=== PATIENT | male | born 1965 | race Caucasian/White ===

== ENCOUNTER → 2020-04-15 | Emergency (ER) | payer MEDICAID ==
[~2020-04-15] VITALS: Ht 175.3 cm; Wt 90.7 kg
[~2020-04-15] MED LIST: ASPI81CH43 PO; ATOR40TA52 PO; CLOP75TA41 PO; LOSA100T33 PO; METO-158 PO; methylPREDNISolone SOD SUCC 125 MG/2 ML VL IM ONE
[2020-04-15 20:20] VITALS: BP 164/104
== END | disposition home or self-care (01) ==
LOC: ER 20:10
DX: M10.9 Gout, unspecified (principal); E78.5 Hyperlipidemia, unspecified; I10 Essential (primary) hypertension; I25.2 Old myocardial infarction; Z87.891 Personal history of nicotine dependence; Z98.61 Coronary angioplasty status
CPT/HCPCS: 96372; 99283; J2930

== ENCOUNTER 2020-05-03 16:56 | Emergency (ER) | payer MEDICAID ==
[~2020-05-03] VITALS: Ht 175.3 cm; Wt 86.2 kg
[~2020-05-03 16:56] MED LIST changes: -methylPREDNISolone SOD SUCC 125 MG/2 ML VL IM ONE
[2020-05-03 17:37] VITALS: BP 156/98
[2020-05-03] MEDS ORDERED: methylPREDNISolone SOD SUCC 125 MG/2 ML VL IM ONE (17:45)
[2020-05-03] MEDS ORDERED: KETOROLAC TROMETH 60MG/2ML VIAL IM ONE (17:45)
== END 2020-05-03 18:22 | disposition home or self-care (01) ==
LOC: ER 16:56
DX: M10.9 Gout, unspecified (principal); E78.5 Hyperlipidemia, unspecified; I10 Essential (primary) hypertension
CPT/HCPCS: 73562; 96372; 99284; J1885; J2930

== ENCOUNTER 2020-06-19 01:07 | Emergency (ER) | payer MEDICAID ==
[~2020-06-19] VITALS: Ht 177.8 cm; Wt 88.5 kg
[2020-06-19] MEDS ORDERED: cloNIDine HCL 0.1 MG TAB ONE (01:21)
[2020-06-19] MEDS ORDERED: cloNIDine HCL 0.1 MG TAB PO ONE (01:30)
[2020-06-19 03:07] VITALS: BP 153/92
[2020-06-19] MEDS ORDERED: TETRACAINE HCL 0.5% OPTH(EYE) SOLN 4ML RIGHTEYE ONE (05:00)
[2020-06-19] MEDS ORDERED: FLUORESCEIN SOD 1 MG TEST STRIP RIGHTEYE ONE (05:00)
== END 2020-06-19 05:56 | disposition left against medical advice (07) ==
LOC: ER 01:07
DX: H57.11 Ocular pain, right eye (principal); Z53.21 Procedure and treatment not carried out due to patient leaving prior to being seen by health care provider

== ENCOUNTER 2020-07-12 23:52 | Emergency (ER) | payer MEDICAID ==
[~2020-07-12] VITALS: Ht 177.8 cm; Wt 90.7 kg
[2020-07-13 02:50] LABS: Basophils # (auto) 0.1 10 ^3/uL (0-0.2); Basophils % (auto) 0.8 % (0.0-2.0); Eosinophils # (auto) 0.2 10 ^3/uL (0-0.8); Eosinophils % (auto) 2.7 % (0.0-7.0); Hematocrit 37.1 % (41.0-53.0); Hemoglobin 12.4 g/dL (13.5-17.5); Lymphocytes # (auto) 1.2 10 ^3/uL (0.4-5.4); Lymphocytes % (auto) 16.8 % (10.0-50.0); Mean Corpuscular Hemoglobin 31.3 pg (28.0-32.0); Mean Corpuscular Hgb Conc. 33.5 g/dL (32.0-36.0); Mean Corpuscular Volume 93.4 fL (80.0-100.0); Monocytes # (auto) 0.4 10 ^3/uL (0-1.3); Monocytes % (auto) 5.4 % (0.0-12.0); Neutrophils # (auto) 5.3 10 ^3/uL (1.6-8.6); Neutrophils % (auto) 74.3 % (37.0-80.0); Nucleated Red Blood Cells % 0.4 %; Platelet Count (auto) 341 10^3/uL (140-450); Red Blood Cells 3.97 10^6/uL (4.5-5.90); Red Cell Distribution Width 17.5 % (11.8-14.3); White Blood Cell 7.1 10^3/uL (4.4-10.8)
[2020-07-13 03:07] LABS: Albumin 3.5 g/dL (3.4-5.0); Anion Gap 6 (5-15); Blood Urea Nitrogen 17 mg/dL (7-18); Calcium 8.7 mg/dL (8.5-10.1); Carbon Dioxide 26 mmol/L (21-32); Chloride 106 mmol/L (98-107); Glucose 113 mg/dL (74-106); Lipase 103 U/L (73-393); Magnesium 2.1 mg/dL (1.6-2.6); Sodium 138 mmol/L (136-145)
[2020-07-13 03:09] LABS: Alanine Aminotransferase 28 U/L (16-61); Amylase 70 U/L (25-115); Aspartate Aminotransferase 14 U/L (15-37); BUN/Creatinine Ratio 16.2; GFR African American 94 mL/min; GFR Non-African American 77 mL/min
[2020-07-13] MEDS ORDERED: KETOROLAC TROMETH 60MG/2ML VIAL IM ONE (03:15)
[2020-07-13 03:16] LABS: Alkaline Phosphatase 103 U/L (45-117); Bilirubin, Total 0.4 mg/dL (0.2-1.0); Total Protein 6.9 g/dL (6.4-8.2)
[2020-07-13 04:03] VITALS: BP 167/94
== END 2020-07-13 03:11 | disposition home or self-care (01) ==
LOC: ER 23:52
DX: M54.5 Low back pain (principal); M19.90 Unspecified osteoarthritis, unspecified site; I25.10 Atherosclerotic heart disease of native coronary artery without angina pectoris; M10.9 Gout, unspecified; E78.5 Hyperlipidemia, unspecified; I10 Essential (primary) hypertension; F17.210 Nicotine dependence, cigarettes, uncomplicated
CPT/HCPCS: 36415; 74176; 80053; 82150; 83690; 83735; 84484; 85025; 93005; 96372; 99285; J1885

== ENCOUNTER 2021-03-28 22:18 | Inpatient (IN) | payer MEDICAID ==
[~2021-03-28] VITALS: Ht 177.8 cm; Wt 96.1 kg
[~2021-03-28 22:18] MED LIST changes: -CLOP75TA41 PO; +CLOP75TA70 PO
[2021-03-28 23:05] LABS: Basophils # (auto) 0.1 10 ^3/uL (0-0.2); Basophils % (auto) 0.7 % (0.0-2.0); Eosinophils # (auto) 0.1 10 ^3/uL (0-0.8); Eosinophils % (auto) 1.1 % (0.0-7.0); Hemoglobin 14.3 g/dL (13.5-17.5); Lymphocytes # (auto) 1.5 10 ^3/uL (0.4-5.4); Lymphocytes % (auto) 14.4 % (10.0-50.0); Mean Corpuscular Hemoglobin 31.2 pg (28.0-32.0); Mean Corpuscular Hgb Conc. 33.2 g/dL (32.0-36.0); Mean Corpuscular Volume 93.9 fL (80.0-100.0); Monocytes # (auto) 0.8 10 ^3/uL (0-1.3); Monocytes % (auto) 7.5 % (0.0-12.0); Neutrophils # (auto) 7.9 10 ^3/uL (1.6-8.6); Neutrophils % (auto) 76.3 % (37.0-80.0); Nucleated Red Blood Cells % 0.2 %; Red Blood Cells 4.58 10^6/uL (4.5-5.90); Red Cell Distribution Width 17.4 % (11.8-14.3); White Blood Cell 10.4 10^3/uL (4.4-10.8)
[2021-03-28 23:21] LABS: Albumin 3.6 g/dL (3.4-5.0); Anion Gap 8 (5-15); Blood Urea Nitrogen 19 mg/dL (7-18); Carbon Dioxide 26 mmol/L (21-32); Chloride 106 mmol/L (98-107); Glucose 155 mg/dL (74-106); Potassium 4.2 mmol/L (3.5-5.1); Sodium 140 mmol/L (136-145)
[2021-03-28 23:22] LABS: INR 0.97 (0.9-1.15); Partial Thromboplastin Time 29.8 sec (23.0-31.2)
[2021-03-28 23:27] LABS: Alanine Aminotransferase 32 U/L (16-61); Alkaline Phosphatase 105 U/L (45-117); Aspartate Aminotransferase 16 U/L (15-37); BUN/Creatinine Ratio 17.1; Bilirubin, Total 0.4 mg/dL (0.2-1.0); GFR African American 88 mL/min; GFR Non-African American 73 mL/min; Total Protein 7.5 g/dL (6.4-8.2); Uric Acid 8.1 mg/dL (3.5-7.2)
[2021-03-28] MEDS ORDERED: MORPHINE SULFATE 10 MG/ML INJ 1ML SDV IM ONE (23:45)
[2021-03-28] MEDS ORDERED: HYDROcodone-ACET 10/325MG TAB PO ONE (23:45)
[2021-03-28] MEDS ORDERED: COLCHICINE 0.6 MG CAP PO ONE (23:45)
[2021-03-29] MEDS ORDERED: MORPHINE SULFATE 4 MG/ML SYR/VIAL ONE (00:29)
[2021-03-29] MEDS ORDERED: MORPHINE SULFATE INJECTION 2 MG/ML SYRG ONE (00:29)
[2021-03-29 03:42] LABS: Urine Bacteria NONE SEEN /hpf (None Seen); Urine Blood Negative /uL (Negative); Urine Hyaline Cast FEW /lpf (0 - 2); Urine Mucus FEW (None Seen); Urine Specific Gravity 1.028 (1.001-1.035); Urine WBC 6 /hpf (0 - 3)
[2021-03-29] MEDS ORDERED: TEMAZEPAM 15 MG CAP PO PRN (05:00)
[2021-03-29] MEDS ORDERED: NITROGLYCERIN 0.4 MG SL TAB SL PRN (05:00)
[2021-03-29] MEDS ORDERED: ONDANSETRON HCL 4 MG/2 ML VIAL IV PRN (05:00)
[2021-03-29] MEDS ORDERED: MORPHINE SULFATE INJECTION 2 MG/ML SYRG IV PRN (05:00)
[2021-03-29] MEDS ORDERED: ACETAMINOPHEN 325 MG TAB PO PRN (05:00)
[2021-03-29] MEDS ORDERED: HYDROcodone-ACET 5/325MG TAB PO PRN (05:00)
[2021-03-29] MEDS: COLCHICINE 0.6 MG CAP PO SCH (09:25)
[2021-03-29] MEDS: ASPirin 81 mg TAB PO SCH (09:25)
[2021-03-29] MEDS: METOPROLOL TARTRATE 50 MG TAB PO SCH ×2 (09:25→21:43)
[2021-03-29] MEDS: ENOXAPARIN SOD 40 MG/0.4 ML SYRINGE SC SCH (09:26)
[2021-03-29] MEDS: FAMOTIDINE 20 MG TAB PO SCH ×2 (09:26→21:42)
[2021-03-29] MEDS: CLOPIDOGREL BISULFATE 75 MG TAB PO SCH (09:26)
[2021-03-29 12:30] VITALS: BP 158/93
[2021-03-29] MEDS ORDERED: HCTZ 25 MG TAB PO ONE (15:30)
[2021-03-29] MEDS ORDERED: INDOMETHACIN 25 MG CAP PO ONE (15:30)
[2021-03-29 17:00] VITALS: BP 153/77
[2021-03-29] MEDS: INDOMETHACIN 25 MG CAP PO SCH (21:42)
[2021-03-29 22:00] VITALS: BP 139/77
[2021-03-30 04:48] VITALS: BP 158/88
[2021-03-30] MEDS: INDOMETHACIN 25 MG CAP PO SCH ×3 (05:44→22:18)
[2021-03-30 06:04] LABS: Basophils # (auto) 0.1 10 ^3/uL (0-0.2); Basophils % (auto) 0.8 % (0.0-2.0); Eosinophils # (auto) 0.1 10 ^3/uL (0-0.8); Eosinophils % (auto) 1.7 % (0.0-7.0); Hematocrit 38.5 % (41.0-53.0); Lymphocytes # (auto) 1.4 10 ^3/uL (0.4-5.4); Lymphocytes % (auto) 19.2 % (10.0-50.0); Mean Corpuscular Hemoglobin 31.3 pg (28.0-32.0); Mean Corpuscular Hgb Conc. 33.7 g/dL (32.0-36.0); Monocytes # (auto) 0.5 10 ^3/uL (0-1.3); Monocytes % (auto) 7.5 % (0.0-12.0); Neutrophils % (auto) 70.8 % (37.0-80.0); Nucleated Red Blood Cells % 0.1 %; Red Blood Cells 4.14 10^6/uL (4.5-5.90); Red Cell Distribution Width 16.9 % (11.8-14.3); White Blood Cell 7.1 10^3/uL (4.4-10.8)
[2021-03-30 06:27] LABS: Chloride 104 mmol/L (98-107); Sodium 137 mmol/L (136-145)
[2021-03-30 06:37] LABS: Anion Gap 7 (5-15); BUN/Creatinine Ratio 21.8; Blood Urea Nitrogen 22 mg/dL (7-18); Calcium 8.8 mg/dL (8.5-10.1); Carbon Dioxide 26 mmol/L (21-32); GFR African American 98 mL/min; GFR Non-African American 81 mL/min; Glucose 132 mg/dL (74-106); Uric Acid 9.5 mg/dL (3.5-7.2)
[2021-03-30 08:33] VITALS: BP 145/90
[2021-03-30] MEDS ORDERED: ADENOSINE 81 MG in GIVE UN-DILUTED 0 ML IV STA (08:45)
[2021-03-30] MEDS: ASPirin 81 mg TAB PO SCH (09:52)
[2021-03-30] MEDS: ENOXAPARIN SOD 40 MG/0.4 ML SYRINGE SC SCH (09:52)
[2021-03-30] MEDS: FAMOTIDINE 20 MG TAB PO SCH ×2 (09:52→22:17)
[2021-03-30] MEDS: METOPROLOL TARTRATE 50 MG TAB PO SCH ×2 (09:54→22:17)
[2021-03-30] MEDS: HCTZ 25 MG TAB PO SCH (09:55)
[2021-03-30] MEDS: LOSARTAN POTASSIUM 25 MG TAB PO SCH (09:56)
[2021-03-30] MEDS: COLCHICINE 0.6 MG CAP PO SCH (10:00)
[2021-03-30] MEDS: CLOPIDOGREL BISULFATE 75 MG TAB PO SCH (10:00)
[2021-03-30] MEDS ORDERED: cloNIDine HCL 0.1 MG TAB PO PRN (10:15)
[2021-03-30 12:47] VITALS: BP 163/83
[2021-03-30 17:00] VITALS: BP 128/78
[2021-03-30 22:00] VITALS: BP 126/85
[2021-03-31 05:00] VITALS: BP_SYST 138; BP_SYST 158; BP_DIAS 82; BP_DIAS 91
[2021-03-31] MEDS: INDOMETHACIN 25 MG CAP PO SCH ×3 (05:22→22:12)
[2021-03-31 06:16] LABS: Basophils # (auto) 0 10 ^3/uL (0-0.2); Basophils % (auto) 0.6 % (0.0-2.0); Eosinophils # (auto) 0.1 10 ^3/uL (0-0.8); Eosinophils % (auto) 1.8 % (0.0-7.0); Hematocrit 39.2 % (41.0-53.0); Hemoglobin 13.3 g/dL (13.5-17.5); Lymphocytes # (auto) 1.4 10 ^3/uL (0.4-5.4); Lymphocytes % (auto) 23.6 % (10.0-50.0); Mean Corpuscular Hemoglobin 31.4 pg (28.0-32.0); Mean Corpuscular Hgb Conc. 33.9 g/dL (32.0-36.0); Mean Corpuscular Volume 92.7 fL (80.0-100.0); Monocytes # (auto) 0.4 10 ^3/uL (0-1.3); Monocytes % (auto) 6.9 % (0.0-12.0); Neutrophils # (auto) 4.1 10 ^3/uL (1.6-8.6); Neutrophils % (auto) 67.1 % (37.0-80.0); Nucleated Red Blood Cells % 0.2 %; Red Blood Cells 4.23 10^6/uL (4.5-5.90); Red Cell Distribution Width 16.5 % (11.8-14.3); White Blood Cell 6.1 10^3/uL (4.4-10.8)
[2021-03-31 07:03] LABS: BUN/Creatinine Ratio 26.3; Calcium 8.6 mg/dL (8.5-10.1); Uric Acid 9.7 mg/dL (3.5-7.2)
[2021-03-31 08:47] VITALS: BP 151/96
[2021-03-31] MEDS: ASPirin 81 mg TAB PO SCH (09:04)
[2021-03-31] MEDS: METOPROLOL TARTRATE 50 MG TAB PO SCH ×2 (09:05→22:12)
[2021-03-31] MEDS: COLCHICINE 0.6 MG CAP PO SCH (09:05)
[2021-03-31] MEDS: HCTZ 25 MG TAB PO SCH (09:05)
[2021-03-31] MEDS: FAMOTIDINE 20 MG TAB PO SCH ×2 (09:06→22:12)
[2021-03-31] MEDS: CLOPIDOGREL BISULFATE 75 MG TAB PO SCH (09:06)
[2021-03-31] MEDS: LOSARTAN POTASSIUM 25 MG TAB PO SCH (09:07)
[2021-03-31] MEDS: ENOXAPARIN SOD 40 MG/0.4 ML SYRINGE SC SCH (09:12)
[2021-03-31 11:27] VITALS: BP 150/93
[2021-03-31 17:20] VITALS: BP 154/97
[2021-03-31 20:00] VITALS: BP 157/88
[2021-04-01 05:00] VITALS: BP 142/90
[2021-04-01] MEDS: INDOMETHACIN 25 MG CAP PO SCH (05:40)
[2021-04-01 09:00] VITALS: BP 151/89
[2021-04-01] MEDS: ASPirin 81 mg TAB PO SCH (09:08)
[2021-04-01] MEDS: COLCHICINE 0.6 MG CAP PO SCH (09:08)
[2021-04-01] MEDS: CLOPIDOGREL BISULFATE 75 MG TAB PO SCH (09:15)
[2021-04-01] MEDS: METOPROLOL TARTRATE 50 MG TAB PO SCH (09:15)
[2021-04-01] MEDS: HCTZ 25 MG TAB PO SCH (09:15)
[2021-04-01] MEDS: FAMOTIDINE 20 MG TAB PO SCH (09:16)
[2021-04-01] MEDS: ENOXAPARIN SOD 40 MG/0.4 ML SYRINGE SC SCH (09:16)
[2021-04-01] MEDS: LOSARTAN POTASSIUM 25 MG TAB PO SCH (09:17)
[2021-04-01 13:00] VITALS: BP 147/80
== END 2021-04-01 12:30 | disposition home or self-care (01) | DRG 194 ==
LOC: ER 22:29 → TELE 03-29 04:52 → TELE-WESTW 03-29 12:42
PROVIDERS: ADMIT Nurse Practitioner; ATTEND Family Medicine
DX: I11.0 Hypertensive heart disease with heart failure (principal); E86.9 Volume depletion, unspecified; D63.8 Anemia in other chronic diseases classified elsewhere; I50.43 Acute on chronic combined systolic (congestive) and diastolic (congestive) heart failure; Z20.822 Contact with and (suspected) exposure to COVID-19; I25.2 Old myocardial infarction; E78.5 Hyperlipidemia, unspecified; E78.00 Pure hypercholesterolemia, unspecified; Z82.49 Family history of ischemic heart disease and other diseases of the circulatory system; R73.03 Prediabetes; Z87.891 Personal history of nicotine dependence; Z95.5 Presence of coronary angioplasty implant and graft; M10.071 Idiopathic gout, right ankle and foot; Z79.899 Other long term (current) drug therapy; Z79.82 Long term (current) use of aspirin; I25.10 Atherosclerotic heart disease of native coronary artery without angina pectoris
CPT/HCPCS: 36415; 71045; 73600; 78452; 80048; 80053; 81001; 83036; 83880; 84443; 84484; 84550; 85025; 85610; 85730; 87426; 93005; 93017; 93306; 96372; G0378; J0153

== ENCOUNTER 2021-07-26 06:43 | Emergency (ER) | payer MEDICAID ==
[~2021-07-26] VITALS: Ht 177.8 cm; Wt 90.7 kg
[2021-07-26] MEDS ORDERED: KETOROLAC TROMETH 60MG/2ML VIAL IM ONE (08:00)
[2021-07-26 08:37] VITALS: BP 176/111
== END 2021-07-26 08:53 | disposition home or self-care (01) ==
LOC: ER 06:45
DX: M10.072 Idiopathic gout, left ankle and foot (principal); I25.10 Atherosclerotic heart disease of native coronary artery without angina pectoris; E78.5 Hyperlipidemia, unspecified; I10 Essential (primary) hypertension; I25.2 Old myocardial infarction; Z79.82 Long term (current) use of aspirin; Z79.899 Other long term (current) drug therapy; Z98.890 Other specified postprocedural states; Z87.891 Personal history of nicotine dependence
CPT/HCPCS: 96372; 99283; J1885

== ENCOUNTER 2021-09-26 10:48 | Emergency (ER) | payer MEDICAID, OTHER ==
[~2021-09-26] VITALS: Ht 177.8 cm; Wt 90.7 kg
[2021-09-26] MEDS ORDERED: IBUPROFEN 800 MG TAB PO ONE (11:30)
[2021-09-26 12:46] VITALS: BP 191/121
== END 2021-09-26 12:55 | disposition home or self-care (01) ==
LOC: ER 10:48
DX: S16.1XXA Strain of muscle, fascia and tendon at neck level, initial encounter (principal); S46.912A Strain of unspecified muscle, fascia and tendon at shoulder and upper arm level, left arm, initial encounter; V43.62XA Car passenger injured in collision with other type car in traffic accident, initial encounter; Y93.89 Activity, other specified; Y92.89 Other specified places as the place of occurrence of the external cause; Y99.8 Other external cause status
CPT/HCPCS: 72040; 73030

== ENCOUNTER 2022-01-19 12:39 | Inpatient (IN) | payer MEDICAID, OTHER ==
[~2022-01-19] VITALS: Ht 177.8 cm; Wt 88.6 kg
[2022-01-19] MEDS ORDERED: NITROGLYCERIN 0.4 MG SL TAB SL ONE (13:00)
[2022-01-19] MEDS ORDERED: ASPirin 81 mg TAB PO ONE (13:00)
[2022-01-19 13:22] LABS: Basophils # (auto) 0.1 10 ^3/uL (0-0.2); Basophils % (auto) 1.1 % (0.0-2.0); Eosinophils # (auto) 0.2 10 ^3/uL (0-0.8); Eosinophils % (auto) 1.8 % (0.0-7.0); Hematocrit 42.2 % (41.0-53.0); Lymphocytes # (auto) 1.1 10 ^3/uL (0.4-5.4); Lymphocytes % (auto) 12.2 % (10.0-50.0); Mean Corpuscular Hemoglobin 30.2 pg (28.0-32.0); Mean Corpuscular Hgb Conc. 33.3 g/dL (32.0-36.0); Mean Corpuscular Volume 90.8 fL (80.0-100.0); Monocytes # (auto) 0.4 10 ^3/uL (0-1.3); Monocytes % (auto) 4.3 % (0.0-12.0); Neutrophils # (auto) 7.2 10 ^3/uL (1.6-8.6); Neutrophils % (auto) 80.6 % (37.0-80.0); Nucleated Red Blood Cells % 0.7 %; Red Blood Cells 4.65 10^6/uL (4.5-5.90); Red Cell Distribution Width 17.6 % (11.8-14.3); White Blood Cell 8.9 10^3/uL (4.4-10.8)
[2022-01-19 13:43] LABS: Albumin 3.5 g/dL (3.4-5.0); Calcium 9.4 mg/dL (8.5-10.1); Magnesium 2.1 mg/dL (1.6-2.6)
[2022-01-19 13:55] LABS: Bilirubin, Total 0.4 mg/dL (0.2-1.0); Total Protein 7.5 g/dL (6.4-8.2)
[2022-01-19] MEDS ORDERED: ACETAMINOPHEN 325 MG TAB PO PRN (17:15)
[2022-01-19] MEDS ORDERED: ONDANSETRON HCL 4 MG/2 ML VIAL IV PRN (17:15)
[2022-01-19] MEDS ORDERED: MORPHINE SULFATE INJECTION 2 MG/ML SYRG IV PRN (17:15)
[2022-01-19] MEDS ORDERED: NITROGLYCERIN 0.4 MG SL TAB SL PRN (17:15)
[2022-01-19] MEDS ORDERED: TEMAZEPAM 15 MG CAP PO PRN (17:15)
[2022-01-19] MEDS: METOPROLOL TARTRATE 50 MG TAB PO SCH (21:33)
[2022-01-19 21:34] VITALS: BP 132/86
[2022-01-19] MEDS: ATORVASTATIN 20 MG TAB PO SCH (21:34)
[2022-01-20 03:23] VITALS: BP 150/86
[2022-01-20 05:25] LABS: Basophils # (auto) 0.1 10 ^3/uL (0-0.2); Basophils % (auto) 0.9 % (0.0-2.0); Eosinophils # (auto) 0.1 10 ^3/uL (0-0.8); Eosinophils % (auto) 1.8 % (0.0-7.0); Hematocrit 40.3 % (41.0-53.0); Hemoglobin 13.5 g/dL (13.5-17.5); Lymphocytes # (auto) 1.6 10 ^3/uL (0.4-5.4); Lymphocytes % (auto) 18.9 % (10.0-50.0); Mean Corpuscular Hemoglobin 30.3 pg (28.0-32.0); Mean Corpuscular Hgb Conc. 33.6 g/dL (32.0-36.0); Mean Corpuscular Volume 90.2 fL (80.0-100.0); Monocytes # (auto) 0.5 10 ^3/uL (0-1.3); Monocytes % (auto) 6.2 % (0.0-12.0); Neutrophils % (auto) 72.2 % (37.0-80.0); Nucleated Red Blood Cells % 0.2 %; Red Blood Cells 4.47 10^6/uL (4.5-5.90); Red Cell Distribution Width 18.1 % (11.8-14.3); White Blood Cell 8.2 10^3/uL (4.4-10.8)
[2022-01-20 05:39] LABS: Calcium 9.4 mg/dL (8.5-10.1); Potassium 4.4 mmol/L (3.5-5.1)
[2022-01-20 05:47] LABS: BUN/Creatinine Ratio 17.2
[2022-01-20 08:00] VITALS: BP 141/86
[2022-01-20 09:00] VITALS: BP 141/86
[2022-01-20] MEDS: LOSARTAN POTASSIUM 50 MG TAB PO SCH (09:29)
[2022-01-20] MEDS: ASPirin 81 mg TAB PO SCH (09:29)
[2022-01-20] MEDS: ENOXAPARIN SOD 40 MG/0.4 ML SYRINGE SC SCH (09:30)
[2022-01-20] MEDS: CLOPIDOGREL BISULFATE 75 MG TAB PO SCH (09:30)
[2022-01-20] MEDS: METOPROLOL TARTRATE 50 MG TAB PO SCH ×2 (09:30→21:06)
[2022-01-20] MEDS: PANTOPRAZOLE 40 MG TAB PO SCH (09:30)
[2022-01-20] MEDS ORDERED: IOHEXOL 350 MG/ML 100ML IJ ONE (11:03)
[2022-01-20 13:00] VITALS: BP 151/81
[2022-01-20] MEDS ORDERED: LOSA100T33 PO (16:58)
[2022-01-20] MEDS ORDERED: ASPI325T4 PO (16:58)
[2022-01-20] MEDS ORDERED: ALLO100T PO (16:58)
[2022-01-20] MEDS ORDERED: CYCL-837 PO (16:58)
[2022-01-20] MEDS ORDERED: MET50T PO (16:58)
[2022-01-20] MEDS ORDERED: ATO40T PO (16:58)
[2022-01-20 17:00] VITALS: BP 143/84
[2022-01-20] MEDS: ATORVASTATIN 20 MG TAB PO SCH (21:06)
[2022-01-20 22:27] VITALS: BP 138/86
[2022-01-21 05:34] VITALS: BP 161/99
[2022-01-21] MEDS ORDERED: ADENOSINE 74 MG in GIVE UN-DILUTED 0 ML IV STA (08:19)
[2022-01-21 09:00] VITALS: BP 161/108
[2022-01-21] MEDS: ASPirin 81 mg TAB PO SCH (09:50)
[2022-01-21] MEDS: LOSARTAN POTASSIUM 50 MG TAB PO SCH (09:50)
[2022-01-21] MEDS: CLOPIDOGREL BISULFATE 75 MG TAB PO SCH (09:51)
[2022-01-21] MEDS: PANTOPRAZOLE 40 MG TAB PO SCH (09:51)
[2022-01-21] MEDS: ENOXAPARIN SOD 40 MG/0.4 ML SYRINGE SC SCH (09:51)
[2022-01-21] MEDS: METOPROLOL TARTRATE 50 MG TAB PO SCH (09:51)
== END 2022-01-21 12:00 | disposition home or self-care (01) | DRG 198 ==
LOC: EDBD 12:44 → ER 12:44 → TELE 17:18 → TELE-WESTW 18:50
PROVIDERS: ADMIT Nurse Practitioner; ATTEND Internal Medicine Pulmonary Disease
DX: I25.110 Atherosclerotic heart disease of native coronary artery with unstable angina pectoris (principal); E78.5 Hyperlipidemia, unspecified; I16.0 Hypertensive urgency; M10.9 Gout, unspecified; M19.90 Unspecified osteoarthritis, unspecified site; I25.2 Old myocardial infarction; Z82.49 Family history of ischemic heart disease and other diseases of the circulatory system; Z87.891 Personal history of nicotine dependence; Z95.5 Presence of coronary angioplasty implant and graft; Z20.822 Contact with and (suspected) exposure to COVID-19
CPT/HCPCS: 36415; 71045; 71275; 78452; 80048; 80053; 83735; 83880; 84484; 85025; 85379; 87426; 93005; 93017; 93306; G0378; J0153

== ENCOUNTER 2022-03-09 06:37 | Inpatient (IN) | payer MEDICAID ==
[~2022-03-09] VITALS: Ht 177.8 cm; Wt 86.9 kg
[~2022-03-09 06:37] MED LIST changes: +ALLO100T PO; +ASPI325T4 PO; +ATO40T PO; +CYCL-837 PO; +MET50T PO
[2022-03-09 07:25] LABS: Basophils # (auto) 0.1 10 ^3/uL (0-0.2); Eosinophils # (auto) 0.1 10 ^3/uL (0-0.8); Hematocrit 36.4 % (41.0-53.0); Hemoglobin 12.8 g/dL (13.5-17.5); Lymphocytes # (auto) 1.1 10 ^3/uL (0.4-5.4); Lymphocytes % (auto) 15.3 % (10.0-50.0); Mean Corpuscular Hemoglobin 31.7 pg (28.0-32.0); Mean Corpuscular Hgb Conc. 35.1 g/dL (32.0-36.0); Mean Corpuscular Volume 90.4 fL (80.0-100.0); Monocytes # (auto) 0.4 10 ^3/uL (0-1.3); Neutrophils # (auto) 5.6 10 ^3/uL (1.6-8.6); Neutrophils % (auto) 76.7 % (37.0-80.0); Nucleated Red Blood Cells % 0.3 %; Red Blood Cells 4.02 10^6/uL (4.5-5.90); Red Cell Distribution Width 18.1 % (11.8-14.3); White Blood Cell 7.3 10^3/uL (4.4-10.8)
[2022-03-09] MEDS ORDERED: NITROGLYCERIN 0.4 MG SL TAB SL ONE (07:30)
[2022-03-09] MEDS ORDERED: ASPirin 81 mg TAB PO ONE (07:30)
[2022-03-09 07:48] LABS: Albumin 3.4 g/dL (3.4-5.0); Calcium 8.7 mg/dL (8.5-10.1); Potassium 3.9 mmol/L (3.5-5.1)
[2022-03-09 07:52] LABS: Bilirubin, Total 0.3 mg/dL (0.2-1.0); Total Protein 6.2 g/dL (6.4-8.2)
[2022-03-09] MEDS ORDERED: ENOXAPARIN SOD 100 MG/1 ML SYRINGE SC ONE (08:45)
[2022-03-09 09:48] LABS: Alcohol, Urine < 3.0 mg/dL (0-10); Amphetamine Screen, Urine POSITIVE (NEGATIVE); Barbiturate Scree,Urine NEGATIVE (NEGATIVE); Benzodiazephine Screen, Urine NEGATIVE (NEGATIVE); Cannabinoid Screen, Urine NEGATIVE (NEGATIVE); Cocaine Screen, Urine NEGATIVE (NEGATIVE); Opiate Scree,Urine NEGATIVE (NEGATIVE); Phencyclidine Screen, Urine NEGATIVE (NEGATIVE)
[2022-03-09] MEDS ORDERED: MORPHINE SULFATE INJECTION 2 MG/ML SYRG IV PRN ×2 (10:45→14:15)
[2022-03-09] MEDS ORDERED: NITROGLYCERIN 0.4 MG SL TAB SL PRN (10:45)
[2022-03-09] MEDS ORDERED: METOPROLOL SUCCINATE XL 50 MG TAB PO ONE (14:00)
[2022-03-09] MEDS ORDERED: BENAZEPRIL HCL 10 MG TAB PO ONE (14:00)
[2022-03-09] MEDS ORDERED: ATORVASTATIN 20 MG TAB PO ONE (14:00)
[2022-03-09 14:04] VITALS: BP 154/94
[2022-03-09] MEDS ORDERED: LACTULOSE 20Gm/30ML SOLN PO PRN (14:15)
[2022-03-09] MEDS ORDERED: hydrALAZINE HCL 20 MG/ML VL IV PRN (14:15)
[2022-03-09] MEDS ORDERED: IPRATROPIUM BROM 0.5 MG/2.5ML INH SOL NEB ONE (14:15)
[2022-03-09] MEDS ORDERED: DOCUSATE SOD 100 MG CAP PO PRN (14:15)
[2022-03-09] MEDS ORDERED: LORazepam 2MG/ML-1ML VIAL IV PRN (14:15)
[2022-03-09] MEDS ORDERED: HYDROcodone-ACET 5/325MG TAB PO ONE (14:15)
[2022-03-09] MEDS ORDERED: HYDROcodone-ACET 5/325MG TAB PO PRN (14:15)
[2022-03-09] MEDS ORDERED: IPRATROPIUM BROM 0.5 MG/2.5ML INH SOL NEB PRN (14:15)
[2022-03-09] MEDS ORDERED: ONDANSETRON HCL 4 MG/2 ML VIAL IV PRN (14:15)
[2022-03-09] MEDS ORDERED: LORazepam 0.5 MG TAB PO PRN (14:15)
[2022-03-09 17:00] VITALS: BP 153/99
[2022-03-09 17:36] LABS: Magnesium 1.9 mg/dL (1.6-2.6); Phosphorus 3.2 mg/dL (2.5-4.90)
[2022-03-09 17:44] LABS: INR 1.05 (0.9-1.15); Partial Thromboplastin Time 34.7 sec (23.6-33.0)
[2022-03-09] MEDS ORDERED: IPRATROPIUM BROM 0.5 MG/2.5ML INH SOL NEB SCH (18:00)
[2022-03-09 21:58] VITALS: BP 139/89
[2022-03-09] MEDS ORDERED: ACETYLCYSTEINE 10 %(100MG/ML) SOL 4ML NEB SCH (22:00)
[2022-03-10] MEDS ORDERED: FUROSEMIDE 20 MG/2 ML VIAL IV SCH (06:00)
[2022-03-10 07:06] LABS: Potassium 4.2 mmol/L (3.5-5.1)
[2022-03-10 07:07] LABS: INR 1.04 (0.9-1.15); Partial Thromboplastin Time 32.1 sec (23.6-33.0)
[2022-03-10 07:26] LABS: Basophils # (auto) 0.1 10 ^3/uL (0-0.2); Basophils % (auto) 0.8 % (0.0-2.0); Eosinophils # (auto) 0.1 10 ^3/uL (0-0.8); Hematocrit 38.6 % (41.0-53.0); Hemoglobin 12.7 g/dL (13.5-17.5); Lymphocytes # (auto) 1.1 10 ^3/uL (0.4-5.4); Lymphocytes % (auto) 15.2 % (10.0-50.0); Mean Corpuscular Hemoglobin 30.6 pg (28.0-32.0); Mean Corpuscular Volume 92.7 fL (80.0-100.0); Monocytes # (auto) 0.4 10 ^3/uL (0-1.3); Monocytes % (auto) 5.3 % (0.0-12.0); Neutrophils # (auto) 5.6 10 ^3/uL (1.6-8.6); Neutrophils % (auto) 76.7 % (37.0-80.0); Nucleated Red Blood Cells % 0.7 %; Red Blood Cells 4.16 10^6/uL (4.5-5.90); Red Cell Distribution Width 17.9 % (11.8-14.3); White Blood Cell 7.3 10^3/uL (4.4-10.8)
[2022-03-10 07:27] LABS: Albumin 3.4 g/dL (3.4-5.0); BUN/Creatinine Ratio 18.4; Bilirubin, Total 0.3 mg/dL (0.2-1.0); CRP High Sensitivity 1.64 mg/dL (< 0.3); Calcium 9.3 mg/dL (8.5-10.1); Total Protein 6.8 g/dL (6.4-8.2)
[2022-03-10 07:40] LABS: Thyroid Stimulating Hormone 0.95 uIU/mL (0.358-3.74)
[2022-03-10 09:01] VITALS: BP 143/81
[2022-03-10] MEDS: BENAZEPRIL HCL 10 MG TAB PO SCH (09:38)
[2022-03-10] MEDS: THIAMINE HCL 100 MG TAB PO SCH (09:38)
[2022-03-10] MEDS: ISOSORBIDE MONONITRATE 20 MG TAB PO SCH ×2 (09:39→22:22)
[2022-03-10] MEDS: MAGNESIUM OXIDE 400 MG TAB PO SCH ×2 (09:39→22:21)
[2022-03-10] MEDS: ALLOPURINOL 100 MG TAB PO SCH (09:40)
[2022-03-10] MEDS: METOPROLOL SUCCINATE XL 50 MG TAB PO SCH (09:40)
[2022-03-10] MEDS: CLOPIDOGREL BISULFATE 75 MG TAB PO SCH (09:40)
[2022-03-10] MEDS: ASPirin 81 mg TAB PO SCH (09:40)
[2022-03-10] MEDS ORDERED: ENOXAPARIN SOD 40 MG/0.4 ML SYRINGE SC SCH (10:00)
[2022-03-10] MEDS ORDERED: POTASSIUM CHL 20 Meq TABLET PO SCH (10:00)
[2022-03-10 13:00] VITALS: BP 125/79
[2022-03-10 16:18] LABS: Urine Bacteria FEW /hpf (None Seen); Urine Blood Negative /uL (Negative); Urine Specific Gravity 1.015 (1.001-1.035); Urine Sperm PRESENT /hpf (None Seen); Urine WBC 1 /hpf (0 - 3)
[2022-03-10 17:24] VITALS: BP 109/57
[2022-03-10 20:24] LABS: Alcohol, Urine < 3.0 mg/dL (0-10); Amphetamine Screen, Urine POSITIVE (NEGATIVE); Barbiturate Scree,Urine NEGATIVE (NEGATIVE); Benzodiazephine Screen, Urine NEGATIVE (NEGATIVE); Cannabinoid Screen, Urine NEGATIVE (NEGATIVE); Cocaine Screen, Urine NEGATIVE (NEGATIVE); Opiate Scree,Urine NEGATIVE (NEGATIVE); Phencyclidine Screen, Urine NEGATIVE (NEGATIVE)
[2022-03-10 21:30] VITALS: BP 128/79
[2022-03-10] MEDS ORDERED: ATORVASTATIN 20 MG TAB PO SCH (22:00)
[2022-03-11 05:00] VITALS: BP 134/89
[2022-03-11] MEDS ORDERED: LIDOCAINE 2%HCL (LOCAL ANESTH.) INJ 10ml MDV ONE (07:28)
[2022-03-11] MEDS ORDERED: ANGIOMAX 250 MG VIAL IV ONE (07:32)
[2022-03-11] MEDS ORDERED: HEPARIN SODIUM (PORCINE) 5000 UNITS/ML 1ML VIAL ONE (07:32)
[2022-03-11] MEDS ORDERED: VERAPAMIL 2.5MG/ML INJ 2ML VIAL IV ONE (07:33)
[2022-03-11] MEDS ORDERED: MIDAZOLAM HCL 2MG/2ML 2ml VIAL (1mg/ml) ONE (07:33)
[2022-03-11] MEDS ORDERED: SODIUM CHL 0.9% 0 ML ONE (07:33)
[2022-03-11] MEDS ORDERED: fentaNYL CITRATE 100 MCG/2 ML VL ONE (07:33)
[2022-03-11 09:30] VITALS: BP 125/92
[2022-03-11] MEDS: ISOSORBIDE MONONITRATE 20 MG TAB PO SCH (09:40)
[2022-03-11] MEDS: THIAMINE HCL 100 MG TAB PO SCH (09:40)
[2022-03-11] MEDS: CLOPIDOGREL BISULFATE 75 MG TAB PO SCH (09:41)
[2022-03-11] MEDS: BENAZEPRIL HCL 10 MG TAB PO SCH (09:41)
[2022-03-11] MEDS: MAGNESIUM OXIDE 400 MG TAB PO SCH (09:41)
[2022-03-11] MEDS: ALLOPURINOL 100 MG TAB PO SCH (09:41)
[2022-03-11] MEDS: ASPirin 81 mg TAB PO SCH (09:42)
[2022-03-11] MEDS: METOPROLOL SUCCINATE XL 50 MG TAB PO SCH (09:43)
[2022-03-11] MEDS ORDERED: ISO20T PO (11:21)
[2022-03-11] MEDS ORDERED: ASPI1CHW15 PO (11:21)
[2022-03-11] MEDS ORDERED: METO-6 PO (11:21)
[2022-03-11] MEDS ORDERED: BENA10TA15 PO (11:21)
[2022-03-11] MEDS ORDERED: ATOR20TA50 PO (11:21)
[2022-03-11] MEDS ORDERED: CLOP75TA70 PO (11:21)
[2022-03-11] MEDS ORDERED: ALL100T PO (11:21)
[2022-03-11 12:35] VITALS: BP 130/80
[2022-03-11 15:25] VITALS: BP 130/80
[2022-03-11 15:50] VITALS: BP 152/86
== END 2022-03-11 16:30 | disposition home or self-care (01) | DRG 190 ==
LOC: ER 06:37 → TELE 10:37 → TELE-EAST 13:54
PROVIDERS: ADMIT Hospitalist; ATTEND Internal Medicine
PROC: B2111ZZ Fluoroscopy of Multiple Coronary Arteries using Low Osmolar Contrast (ICD-10-PCS; principal; 2022-03-11)
DX: I25.10 Atherosclerotic heart disease of native coronary artery without angina pectoris (principal); I21.A1 Myocardial infarction type 2; D64.9 Anemia, unspecified; I16.0 Hypertensive urgency; E66.9 Obesity, unspecified; E78.5 Hyperlipidemia, unspecified; Z20.822 Contact with and (suspected) exposure to COVID-19; R73.9 Hyperglycemia, unspecified; F15.10 Other stimulant abuse, uncomplicated; M1A.9XX0 Chronic gout, unspecified, without tophus (tophi); Z68.27 Body mass index [BMI] 27.0-27.9, adult; M19.90 Unspecified osteoarthritis, unspecified site; F19.10 Other psychoactive substance abuse, uncomplicated; Z91.19 Patient's noncompliance with other medical treatment and regimen; Z87.891 Personal history of nicotine dependence; Z79.82 Long term (current) use of aspirin
CPT/HCPCS: 36415; 71045; 80053; 80061; 80307; 81001; 82550; 82728; 83036; 83615; 83690; 83735; 83880; 84100; 84443; 84484; 85025; 85379; 85610; 85652; 85730; 86141; 87040; 87086; 87088; 87186; 87205; 93005; 93460; 96372; 99152; 99291; G0378; J2001; J2250

== ENCOUNTER 2022-10-28 20:38 | Inpatient (IN) | payer MEDICAID ==
[~2022-10-28] VITALS: Ht 177.8 cm; Wt 89.4 kg
[~2022-10-28 20:38] MED LIST changes: +ALL100T PO; +ASPI1CHW15 PO; +ATOR20TA50 PO; +BENA10TA15 PO; +ISO20T PO; +METO-6 PO
[2022-10-28] MEDS ORDERED: amLODIPine BESYLATE 5 MG TAB PO ONE (21:00)
[2022-10-28 21:24] LABS: Basophils # (auto) 0.1 10 ^3/uL (0-0.2); Basophils % (auto) 0.4 % (0.0-2.0); Eosinophils # (auto) 0.2 10 ^3/uL (0-0.8); Eosinophils % (auto) 1.3 % (0.0-7.0); Hematocrit 42.4 % (41.0-53.0); Hemoglobin 13.9 g/dL (13.5-17.5); Lymphocytes # (auto) 1.1 10 ^3/uL (0.4-5.4); Lymphocytes % (auto) 8.2 % (10.0-50.0); Mean Corpuscular Hemoglobin 30.7 pg (28.0-32.0); Mean Corpuscular Hgb Conc. 32.7 g/dL (32.0-36.0); Mean Corpuscular Volume 93.8 fL (80.0-100.0); Monocytes # (auto) 0.7 10 ^3/uL (0-1.3); Neutrophils # (auto) 11.8 10 ^3/uL (1.6-8.6); Neutrophils % (auto) 85.1 % (37.0-80.0); Nucleated Red Blood Cells % 0.2 %; Red Blood Cells 4.52 10^6/uL (4.5-5.90); Red Cell Distribution Width 17.7 % (11.8-14.3); White Blood Cell 13.9 10^3/uL (4.4-10.8)
[2022-10-28 21:40] LABS: Calcium 9.7 mg/dL (8.5-10.1); Potassium 4.7 mmol/L (3.5-5.1)
[2022-10-28 21:42] LABS: BUN/Creatinine Ratio 11.8
[2022-10-28 21:45] LABS: Bilirubin, Total 0.4 mg/dL (0.2-1.0); Total Protein 7.3 g/dL (6.4-8.2)
[2022-10-29] MEDS ORDERED: ASPirin 81 mg TAB PO ONE (02:15)
[2022-10-29] MEDS ORDERED: HEPARIN SODIUM (PORCINE) 5000 UNITS/ML 1ML VIAL IV ONE (02:15)
[2022-10-29] MEDS ORDERED: NITROGLYCERIN 0.4 MG SL TAB SL PRN (04:15)
[2022-10-29] MEDS ORDERED: MORPHINE SULFATE INJ 2 MG/ml SYRG IV PRN ×2 (04:15)
[2022-10-29] MEDS ORDERED: DOCUSATE SOD 100 MG CAP PO PRN (04:15)
[2022-10-29] MEDS ORDERED: ONDANSETRON HCL 4 MG/2 ML VIAL IV PRN (04:15)
[2022-10-29] MEDS ORDERED: DEXTROSE (50%) 50ML SYRG IV PRN (04:15)
[2022-10-29] MEDS ORDERED: HYDROcodone-ACET 5/325MG TAB PO PRN (04:15)
[2022-10-29 05:11] LABS: Basophils # (auto) 0.1 10 ^3/uL (0-0.2); Basophils % (auto) 0.8 % (0.0-2.0); Eosinophils # (auto) 0.1 10 ^3/uL (0-0.8); Eosinophils % (auto) 1.3 % (0.0-7.0); Hematocrit 38.9 % (41.0-53.0); Lymphocytes # (auto) 1.2 10 ^3/uL (0.4-5.4); Mean Corpuscular Hemoglobin 31.1 pg (28.0-32.0); Mean Corpuscular Hgb Conc. 33.4 g/dL (32.0-36.0); Mean Corpuscular Volume 93.2 fL (80.0-100.0); Monocytes # (auto) 0.5 10 ^3/uL (0-1.3); Monocytes % (auto) 4.8 % (0.0-12.0); Neutrophils # (auto) 7.5 10 ^3/uL (1.6-8.6); Neutrophils % (auto) 80.1 % (37.0-80.0); Nucleated Red Blood Cells % 0.2 %; Red Blood Cells 4.18 10^6/uL (4.5-5.90); Red Cell Distribution Width 17.7 % (11.8-14.3); White Blood Cell 9.4 10^3/uL (4.4-10.8)
[2022-10-29] MEDS: SOD CHL 0.45% 1,000 ML IV SCH ×2 (05:18→23:21)
[2022-10-29 05:26] LABS: Albumin 3.7 g/dL (3.4-5.0); Calcium 9.3 mg/dL (8.5-10.1); Potassium 4.1 mmol/L (3.5-5.1)
[2022-10-29 05:29] LABS: BUN/Creatinine Ratio 14.2; Bilirubin, Total 0.3 mg/dL (0.2-1.0)
[2022-10-29] MEDS: ACCU-CHEK COMFORT CURVE STRIP VI SCH ×4 (09:21→22:15)
[2022-10-29] MEDS: InsuLIN REG 1unit/0.01ml Soln (100units/ml) SC SCH ×4 (09:21→22:17)
[2022-10-29] MEDS: ASPirin 81 mg TAB PO SCH (09:30)
[2022-10-29] MEDS: cefTRIAXone 1GM/50ML D5W 50 ML IV SCH (09:30)
[2022-10-29] MEDS: HEPARIN SODIUM (PORCINE) 5000 UNITS/ML 1ML VIAL SC SCH ×2 (09:33→22:16)
[2022-10-29] MEDS: METOPROLOL TARTRATE 25 MG TAB PO SCH ×2 (09:36→22:15)
[2022-10-29 09:56] VITALS: BP 151/92
[2022-10-29 10:16] VITALS: BP 151/92
[2022-10-29 12:22] VITALS: BP 136/83
[2022-10-29 16:17] VITALS: BP 111/77
[2022-10-29 22:00] VITALS: BP 113/58
[2022-10-29] MEDS: ATORVASTATIN 20 MG TAB PO SCH (22:11)
[2022-10-30 05:00] VITALS: BP 145/96
[2022-10-30] MEDS: ACCU-CHEK COMFORT CURVE STRIP VI SCH ×4 (05:05→22:34)
[2022-10-30] MEDS: InsuLIN REG 1unit/0.01ml Soln (100units/ml) SC SCH ×4 (05:05→22:40)
[2022-10-30 06:32] LABS: Basophils # (auto) 0.1 10 ^3/uL (0-0.2); Basophils % (auto) 0.7 % (0.0-2.0); Eosinophils # (auto) 0.2 10 ^3/uL (0-0.8); Eosinophils % (auto) 1.9 % (0.0-7.0); Hematocrit 38.5 % (41.0-53.0); Hemoglobin 12.6 g/dL (13.5-17.5); Lymphocytes # (auto) 1.3 10 ^3/uL (0.4-5.4); Lymphocytes % (auto) 15.7 % (10.0-50.0); Mean Corpuscular Hemoglobin 30.5 pg (28.0-32.0); Mean Corpuscular Hgb Conc. 32.7 g/dL (32.0-36.0); Mean Corpuscular Volume 93.5 fL (80.0-100.0); Monocytes # (auto) 0.3 10 ^3/uL (0-1.3); Monocytes % (auto) 3.9 % (0.0-12.0); Neutrophils # (auto) 6.4 10 ^3/uL (1.6-8.6); Neutrophils % (auto) 77.8 % (37.0-80.0); Nucleated Red Blood Cells % 0.2 %; Red Blood Cells 4.12 10^6/uL (4.5-5.90); Red Cell Distribution Width 17.3 % (11.8-14.3); White Blood Cell 8.2 10^3/uL (4.4-10.8)
[2022-10-30 06:52] LABS: Albumin 3.5 g/dL (3.4-5.0); Calcium 9.1 mg/dL (8.5-10.1); Potassium 4.5 mmol/L (3.5-5.1)
[2022-10-30 06:56] LABS: BUN/Creatinine Ratio 20.7; Bilirubin, Total 0.6 mg/dL (0.2-1.0); Total Protein 6.3 g/dL (6.4-8.2)
[2022-10-30] MEDS: ACETAMINOPHEN 325 MG TAB PO PRN ×2 (08:18→16:55)
[2022-10-30 09:00] VITALS: BP 134/74
[2022-10-30] MEDS: ASPirin 81 mg TAB PO SCH (09:19)
[2022-10-30] MEDS: METOPROLOL TARTRATE 25 MG TAB PO SCH ×2 (09:20→22:33)
[2022-10-30] MEDS: cefTRIAXone 1GM/50ML D5W 50 ML IV SCH (09:20)
[2022-10-30] MEDS: HEPARIN SODIUM (PORCINE) 5000 UNITS/ML 1ML VIAL SC SCH ×2 (09:24→22:33)
[2022-10-30 13:00] VITALS: BP 136/80
[2022-10-30 16:51] VITALS: BP 127/83
[2022-10-30] MEDS: SOD CHL 0.45% 1,000 ML IV SCH (19:50)
[2022-10-30 22:00] VITALS: BP 158/76
[2022-10-30] MEDS: ATORVASTATIN 20 MG TAB PO SCH (22:32)
[2022-10-30 23:28] VITALS: BP 158/76
[2022-10-31 05:00] VITALS: BP 139/59
[2022-10-31] MEDS: InsuLIN REG 1unit/0.01ml Soln (100units/ml) SC SCH ×4 (06:48→22:16)
[2022-10-31] MEDS: ACCU-CHEK COMFORT CURVE STRIP VI SCH ×4 (06:48→22:09)
[2022-10-31 09:00] VITALS: BP 159/85
[2022-10-31] MEDS: METOPROLOL TARTRATE 25 MG TAB PO SCH ×2 (09:00→22:11)
[2022-10-31] MEDS: ASPirin 81 mg TAB PO SCH (09:00)
[2022-10-31] MEDS: cefTRIAXone 1GM/50ML D5W 50 ML IV SCH (09:00)
[2022-10-31] MEDS: HEPARIN SODIUM (PORCINE) 5000 UNITS/ML 1ML VIAL SC SCH ×2 (09:05→22:15)
[2022-10-31] MEDS: ACETAMINOPHEN 325 MG TAB PO PRN (10:45)
[2022-10-31] MEDS: SOD CHL 0.45% 1,000 ML IV SCH (16:15)
[2022-10-31 17:00] VITALS: BP 130/84
[2022-10-31 22:00] VITALS: BP 162/84
[2022-10-31] MEDS: ATORVASTATIN 20 MG TAB PO SCH (22:09)
[2022-11-01] VITALS (10 sets, daily range): BP systolic 119–176; BP diastolic 56–104
[2022-11-01] MEDS: InsuLIN REG 1unit/0.01ml Soln (100units/ml) SC SCH ×4 (06:50→21:10)
[2022-11-01] MEDS: ACCU-CHEK COMFORT CURVE STRIP VI SCH ×4 (06:50→21:10)
[2022-11-01] MEDS: cefTRIAXone 1GM/50ML D5W 50 ML IV SCH (09:00)
[2022-11-01] MEDS: METOPROLOL TARTRATE 25 MG TAB PO SCH ×3 (09:37→21:32)
[2022-11-01] MEDS: HEPARIN SODIUM (PORCINE) 5000 UNITS/ML 1ML VIAL SC SCH ×2 (09:43→21:30)
[2022-11-01] MEDS: ASPirin 81 mg TAB PO SCH (10:00)
[2022-11-01] MEDS ORDERED: MIDAZOLAM HCL 2MG/2ML 2ml VIAL (1mg/ml) ONE (11:28)
[2022-11-01] MEDS ORDERED: ANGIOMAX 250 MG VIAL IV ONE (11:28)
[2022-11-01] MEDS ORDERED: HEPARIN SODIUM (PORCINE) 5000 UNITS/ML 1ML VIAL ONE (11:28)
[2022-11-01] MEDS ORDERED: fentaNYL CITRATE 100 MCG/2 ML VL ONE (11:28)
[2022-11-01] MEDS ORDERED: SODIUM CHL 0.9% 50 ML ONE (11:28)
[2022-11-01] MEDS ORDERED: VERAPAMIL 2.5MG/ML INJ 2ML VIAL IV ONE (11:28)
[2022-11-01] MEDS ORDERED: LIDOCAINE 2%HCL (LOCAL ANESTH.) INJ 10ml MDV ONE (11:29)
[2022-11-01] MEDS ORDERED: IODIXANOL 320MG/ML 100ML BTL IV ONE ×2 (11:30→12:30)
[2022-11-01] MEDS ORDERED: CLOPIDOGREL 300 MG TAB ONE (12:24)
[2022-11-01] MEDS ORDERED: ASPirin 81 mg TAB ONE (12:25)
[2022-11-01] MEDS: hydrALAZINE HCL 20 MG/ML VL IV PRN (16:15)
[2022-11-01] MEDS: SOD CHL 0.45% 1,000 ML IV SCH (18:26)
[2022-11-01] MEDS: ATORVASTATIN 20 MG TAB PO SCH (21:25)
[2022-11-02] MEDS: hydrALAZINE HCL 20 MG/ML VL IV PRN (04:32)
[2022-11-02 05:00] VITALS: BP 172/94
[2022-11-02] MEDS: ACCU-CHEK COMFORT CURVE STRIP VI SCH ×2 (06:01→11:30)
[2022-11-02] MEDS: InsuLIN REG 1unit/0.01ml Soln (100units/ml) SC SCH ×2 (06:02→11:30)
[2022-11-02 09:00] VITALS: BP 143/85
[2022-11-02] MEDS ORDERED: CLOPIDOGREL BISULFATE 75 MG TAB PO SCH (10:00)
[2022-11-02] MEDS: ASPirin 81 mg TAB PO SCH (10:17)
[2022-11-02] MEDS: METOPROLOL TARTRATE 25 MG TAB PO SCH (10:18)
[2022-11-02] MEDS: HEPARIN SODIUM (PORCINE) 5000 UNITS/ML 1ML VIAL SC SCH (10:24)
[2022-11-02] MEDS: SOD CHL 0.45% 1,000 ML IV SCH (10:25)
[2022-11-02] MEDS ORDERED: CLOP75TA70 PO (12:09)
[2022-11-02] MEDS ORDERED: ASPI1TAB20 PO (12:09)
[2022-11-02 13:00] VITALS: BP 132/64
[2022-11-02 14:50] VITALS: BP 132/64
== END 2022-11-02 14:45 | disposition home or self-care (01) | DRG 174 ==
LOC: ER 20:38 → TELE 10-29 04:25 → TELE-WESTW 10-29 08:06
PROVIDERS: ADMIT Nurse Practitioner Family; ATTEND Internal Medicine
PROC: 027135Z Dilation of Coronary Artery, Two Arteries with Two Drug-eluting Intraluminal Devices, Percutaneous Approach (ICD-10-PCS; principal; 2022-11-01)
PROC: 4A033BC Measurement of Arterial Pressure, Coronary, Percutaneous Approach (ICD-10-PCS; 2022-11-01)
PROC: B241ZZ3 Ultrasonography of Multiple Coronary Arteries, Intravascular (ICD-10-PCS; 2022-11-01)
PROC: 4A023N7 Measurement of Cardiac Sampling and Pressure, Left Heart, Percutaneous Approach (ICD-10-PCS; 2022-11-01)
PROC: B211YZZ Fluoroscopy of Multiple Coronary Arteries using Other Contrast (ICD-10-PCS; 2022-11-01)
PROC: B215YZZ Fluoroscopy of Left Heart using Other Contrast (ICD-10-PCS; 2022-11-01)
DX: I21.4 Non-ST elevation (NSTEMI) myocardial infarction (principal); D72.829 Elevated white blood cell count, unspecified; E78.5 Hyperlipidemia, unspecified; Z20.822 Contact with and (suspected) exposure to COVID-19; F15.10 Other stimulant abuse, uncomplicated; I10 Essential (primary) hypertension; I25.10 Atherosclerotic heart disease of native coronary artery without angina pectoris; M10.9 Gout, unspecified; R09.02 Hypoxemia; E78.00 Pure hypercholesterolemia, unspecified; I25.2 Old myocardial infarction; Z79.899 Other long term (current) drug therapy
CPT/HCPCS: 36415; 71045; 80053; 82565; 82962; 84484; 84520; 85025; 87426; 93005; 96374; 99152; 99153; C1874; C1887; G0378; J0696; J1815; J2001; J2250; Q9967